=== PATIENT | male | born 1970 | race Caucasian/White ===

== ENCOUNTER 2022-05-14 05:34 | Day surgery (SDC) | payer OTHER ==
[2022-05-13 10:06] VITALS: BMI 41.9
[2022-05-14 13:44] VITALS: BP 135/78; PULSE 75; RESP 16
[2022-05-14 15:12] VITALS: TEMP 97.5
== END 2022-05-14 12:10 | disposition home or self-care (01) ==
LOC: JASU-ENDO 05:34
PROVIDERS: ATTEND Student in an Organized Health Care Education/Training Program
PROC: 0DBJ4ZX Excision of Appendix, Percutaneous Endoscopic Approach, Diagnostic (ICD-10-PCS; 2022-05-14)
PROC: 0DBN8ZX Excision of Sigmoid Colon, Via Natural or Artificial Opening Endoscopic, Diagnostic (ICD-10-PCS; 2022-05-14)
PROC: 0DBK8ZX Excision of Ascending Colon, Via Natural or Artificial Opening Endoscopic, Diagnostic (ICD-10-PCS; principal; 2022-05-14 11:30)
DX: D12.1 Benign neoplasm of appendix (principal); D12.2 Benign neoplasm of ascending colon; D12.5 Benign neoplasm of sigmoid colon; I10 Essential (primary) hypertension
CPT/HCPCS: 88305-TC